=== PATIENT | male | born 2000 | race Caucasian/White ===

== ENCOUNTER 2021-08-07 18:38 | Emergency (ER) | payer OTHER, SELFPAY ==
[2021-08-07 18:48] VITALS: BP 169/87; PULSE 71; RESP 20; TEMP 37.2; O2SAT 100
--- NOTE | 2021-08-07 18:58 | ED.GENADULT ---
HPI - General Adult General Chief complaint: Unspecified Stated complaint: Possible stress level is high, loss of sleep Time Seen by Provider: 08/07/21 18:58 Source: patient and RN notes reviewed History of Present Illness HPI narrative: Patient is a 20-year-old male who presents the urgent care with complaints of increased stress and anxiety. Patient states that he has not been sleeping well since Saturday. States that he has had anxiety in the past and was recommended to try relaxation and yoga exercises. Patient states that he spoke to his provider about recent increased anxiety and he has an appointment with her coming up next month but she advised him to follow-up in the urgent care. Patient has used melatonin and NyQuil for sleep without much improvement. Patient denies any suicidal or homicidal thoughts. Patient is tearful. No other acute complaints. No acute distress noted. Patient aware of the plan of care. Some parts of this dictation were generated by voice recognition software and may contain typographical and/or grammatical inaccuracies. Related Data Allergies Allergy/AdvReac Type Severity Reaction Status Date / Time No Known Allergies Allergy Unknown Verified 02/28/17 01:14 Review of Systems Review of Systems: CONSTITUTIONAL: Denies fever, chills, or sweats. EYES: Denies visual changes, redness, or discharge. ENT: Denies rhinorrhea, congestion, sore throat, or otalgia. CARDIOVASCULAR: Denies chest pain, palpitations, or edema. RESPIRATORY: Denies cough or dyspnea. GASTROINTESTINAL: Denies abdominal pain, nausea, vomiting, or diarrhea. GENITOURINARY: Denies dysuria or hematuria. SKIN: Denies rash or itching. MUSCULOSKELETAL: Denies back pain, joint pain, or myalgia. NEUROLOGIC: Denies headache, numbness, or weakness. PSYCHIATRIC: Reports of increased rest and anxiety All other systems reviewed are negative, except as documented in HPI. PMFSH Comments At the time of my signature, I reviewed and agree with the nursing past medical, surgical, social, and family history. There is no relevant family history pertinent to the patient complaint. Exam Narrative: GENERAL: This is a well-nourished, well-developed patient. Tearful HEAD: normocephalic, atraumatic. EYES: PERRL. Sclera clear/white. Vision is grossly intact. EARS: External ears normal NOSE: External nose normal with no obvious nasal discharge, nares without redness, no rhinorrhea. THROAT: Mucous membranes moist NECK: Neck supple CARDIOVASCULAR: Regular rate and rhythm without murmurs, gallops, or rubs. RESPIRATORY: Clear to auscultation. Breath sounds equal bilaterally. No wheezes, rales, or rhonchi. SKIN: warm, intact with no suspicious lesions or rash, good texture and turgor. NEURO: awake, alert, and oriented to person, place and time. There were no obvious focal neurologic abnormalities. EXTREMITIES: No clubbing, cyanosis, or edema. Course Vital Signs Vital signs: Vital Signs Temperature 99.0 F 08/07/21 18:48 Pulse Rate 71 08/07/21 18:48 Respiratory Rate 20 08/07/21 18:48 Blood Pressure 169/87 H 08/07/21 18:48 Pulse Oximetry 100 08/07/21 18:48 Temperature 99.0 F 08/07/21 18:48 Pulse Rate 71 08/07/21 18:48 Respiratory Rate 20 08/07/21 18:48 Blood Pressure 169/87 H 08/07/21 18:48 Pulse Oximetry 100 08/07/21 18:48 Reviewed-patient is informed that they may have pre-hypertension or hypertension based on a blood pressure reading in the department. I recommend the patient call the primary care provider listed on their discharge instructions or a physician of their choice this week to arrange follow-up for further evaluation of possible pre-hypertension or hypertension. Medical Decision Making MDM Narrative Medical decision making narrative: Advised the patient to use the hydroxyzine as needed for anxiety. Follow-up with your PCP as scheduled next month for a possible anxiety/depression medication for daily use. If you d
== END 2021-08-07 19:15 | disposition home or self-care (01) ==
PROVIDERS: Emergency Provider Nurse Practitioner Family; PCP Internal Medicine
DX: F41.9 Anxiety disorder, unspecified (principal)
CPT/HCPCS: 99213; G0463

== ENCOUNTER 2025-06-10 19:13 | Emergency (ER) | payer SELFPAY ==
--- OUTSIDE RECORDS SUMMARY | 2025-06-10 19:16 | XMS_ITS | Clinical Summary ---
Author Organization [facility] Address 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 This disclosure is being madepursuant to the Care Everywhere program and may not contain all information available regarding this patient. Last updated 18.[facility] Allergies No known active allergies Medications * Be aware that medications may not be up to date on this document. Alwaysverify current medications with the patient. Methylphenidate ER (METADATE ER; RITALIN SR) 20 MG tablet 12/22/2015 Active mupirocin (BACTROBAN) 2 % ointment 0 12/13/2015 Active minocycline (MINOCIN) 100 MG capsule Take 1 Cap by mouth once daily 0 03/24/2017 Active DEBROX 6.5 % otic solution Instill 5 Drops into both ears once daily 0 03/22/2017 Active tretinoin (RETIN-A) 0.1 % cream Apply to affected area as needed 1 03/22/2017 Active ibuprofen (MOTRIN) 400 MG tablet Take 1 Tab by mouth as needed 0 03/03/2017 Active polyethylene glycol 3350 (MIRALAX) powder Take 17 g by mouth as needed 0 01/18/2017 Active hydrOXYzine hcl (ATARAX) 25 MG tablet Take 1 Tab by mouth as needed 0 01/15/2017 Active Active Problems Problem Noted Date Diagnosed Date Chronic headache 04/09/2017 ADHD (attention deficit hyperactivity disorder) 04/09/2017 Anxiety 04/09/2017 Family History Medical History Relation Name Comments Anesthesia Reaction Neg Hx Social History Tobacco Use Types Packs/Day Years Used Date Smoking Tobacco: Passive Smo ke Exposure - Never Smoker Alcohol Use Standard Drinks/Week Comments No 0 (1 standard drink = 0.6 oz pur e alcohol) Sex and Gender Information Value Date Recorded Sex Assigned at Not on file Legal Sex Male 3:36 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 Gender Identity Not on file Sexual Orientation Not on file Last Filed Vital Signs Vital Sign Reading Time Taken Comments Blood Pressure 116/70 04/18/2017 8:36 AM CDT Pulse 84 02/18/2017 8:28 AM CDT per p cp Temperature 36.9 C (98.4 F) 02/18/2017 8:28 AM CDT per pcp Respiratory Rate 16 02/18/2017 8:28 AM CDT p er pcp Oxygen Saturation 98% 01/12/2016 12:45 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 Inhaled Oxygen Concentration - - Weight 72.2 kg (159 lb 2.8 oz) 07/24/2017 1:36 P M CDT Height 166.1 cm (5' 5.39) 07/24/2017 1:36 PM CD T Body Mass Index 26.17 07/24/2017 1:36 PM CDT Plan of Treatment Health Maintenance Due Date Last Done Comments HIV SCREENING 2015 HPV VACCINE (1 - Male 3-dose series) 2015 HEPATITIS C SCREENING 09/14/2018 DTAP/TDAP/TD VACCINES (1 - Tdap) 2019 HEPATITIS B VACCINE (1 of 3 - 19+ 3-dose series) 2019 COVID-19 VACCINE (1 - 2023-2 5 season) 2024 DEPRESSION SCREENING 11/25/2024 INFLUENZA VACCINE (#1) 2025 ZOSTER VACCINE (1 of 2) 2050 HIB VACCINE Aged Out No longer eligi ble based on patient's age to complete this topic MENINGOCOCCAL (Group B) VACC INE SHARED DECISION-MAKING Aged Out No longer eligibl e based on patient's age to complete this topic MENINGOCOCCAL GROUPS A/C/Y/W VACCINE Aged Out No longer eligible b ased on patient's age to complete this topic PNEUMOCOCCAL VACCINE Aged Out No long er eligible based on patient's age to complete this topic Insurance [facility]
--- OUTSIDE RECORDS SUMMARY | 2025-06-10 19:16 | XMS_ITS | Clinical Summary ---
Author Organization [facility] Address [address] [place] [address] Phone Care Team Providers Care Juice Weigher Name Role Phone Regina Lowe MD Primary Care Provider [phone] Allergies No known active allergies Medications hydrOXYzine (VISTARIL) 25 MG Capsule Take 1 Capsule by mouth 3 times daily as needed for Anxiety. 30 Capsule 4 Active ondansetron (ZOFRAN-ODT) 4 MG TABLET DISPERSIBLE Take 1 Tablet by mouth every 6 hours as needed for Nausea - 1st line. 10 Tablet 4 Active senna (SENOKOT) 8.6 MG Tablet Take 1 Tablet by mouth 2 times daily as needed for Constipation - 2nd line. 30 Tablet 4 Active loperamide (IMODIUM) 2 MG Capsule Take 1 Capsule by mouth 4 times daily as needed for Diarrhea. 30 Capsule 4 Active prochlorperazin e (COMPAZINE) 5 MG Tablet Take 2 Tablets by mouth every 6 hours as needed for Nausea - 1st line. 10 Tablet 4 Active dicyclomine (BENTYL) 20 MG Tablet Take 1 Tablet by mouth every 6 hours. 30 Tablet 5 Active naproxen (NAPROSYN) 500 MG Tablet Take 1 Tablet by mouth 2 times daily as needed for Moderate or more severe pain. 20 Tablet 5 Active Active Problems Problem Noted Date Diagnosed Date Enteritis 10/04/2024 ADHD Anxiety Marijuana abuse Encounters Date Type Department Care Team Description 06/07/2025 3:53 PM CDT - 06/07/2025 5:49 PM CDT [facility] [address] [facility] [place] [address] Sylvester Villafana, PAC Contusion of left foot Discharge Disposition: Discharged to home or Selfcare 06/07/2025 Travel 04/30/2025 7:24 PM CDT - 04/30/2025 11:59 PM CDT Hospital Encounter [facility] [address] [place] [address] Lisa Rhoades, JORGE, HOME COMFORT ADVISOR Discharge Disposition: Discharged to home or Selfcare 04/30/2025 Travel 04/20/2025 Transcribe Orders [facility] Central Scheduling [address] [place] [address] Lisa Rhoades, JORGE, HOME COMFORT ADVISOR Solitary pulmonary nodule (Primary Dx) 04/02/2025 Transcribe Orders [facility] Central Scheduling [address] [place] [address] Lisa Rhoades, JORGE, HOME COMFORT ADVISOR Pulmonary nodule (Primary Dx) 03/23/2025 6:52 PM CDT - 03/23/2025 10:33 PM CDT Emergency [facility] Emergency [address] [place] [address] Vannessa Hadley, JORGE, HOME COMFORT ADVISOR COVID Discharge Disposition: Discharged to home or Selfcare 03/22/2025 11:05 PM CDT - 03/22/2025 11:34 PM CDT Emergency [facility] Emergency [address] [place] [address] Elfego Faremr MD COVID-19 Discharge Disposition: Discharged to home or Selfcare 03/22/2025 Travel from Last 3 Months Immunizations Immunization Administration Dates Next Due Influenza Vaccine greater than 3 yrs 08/03/2020 Family History Medical History Relation Name Comments No Known Problems Father Diabetes Maternal Grandfather Clotting Disorder Maternal Uncle Diabetes Mother Stroke Mother Relation Name Status Comments Father Alive Maternal Grandfather Maternal Uncle Mother Alive Social History Tobacco Use Types Packs/Day Years Used Date Smoking Tobacco: Never Smokeless Tobacco: Never Tobacco Cessation:Counseling Given: Not Answered Alcohol Use Standard Drinks/Week Comments Not Currently 0 (1 standard drink = 0.6 oz pur e alcohol) [facility] Utilities Answer Date Recorded In the past 12 months has th e miiCard, gas, oil, or water company threatened to shut off services in your home? No 10/04/2024 Hunger Vital Sign Answer Date Recorded Within the past 12 months, y ou worried that your food would run out before you got the money to buy more. Never true 10/04/20 24 Within the past 12 months, t he food you bought just didn't last and you didn't have money to get more. Never true 10/04/2024 PRAPARE - Transportation Answer Date Re corded In the past 12 months, has l ack of transportation kept you from medical appointments or from getting medications? No 09/25 In the past 12 months, has l ack of transportation kept you from meetings, work, or from getting things needed for daily living? No 10/04/2024 Housing Stability Vital Sign Answer Leonidas e Recorded In the last 12 months, was t here a time when you were not able to pay the mortgage or rent on time? No 10/04/2024 In the past 12 months, how m any times have you moved where you were living? 0 10/04/2024 At any time in the past 12 m [facility], were you homeless or living in a retirement (including now)? 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 Legal Sex Male 7:09 PM CDT Gender Identity Male 10/04/2024 12:16 AM AIRCRAFT FUELER Sexual Orientation Not on file Last Filed Vital Signs Vital Sign Reading Time Taken Comments Blood Pressure 136/92 06/07/2025 3:22 PM CDT Pulse 80 06/07/2025 3:22 PM CDT Temperature 36.4 C (97.6 F) 06/07/2025 3:22 PM CDT Respiratory Rate 18 06/07/2025 3:22 PM CDT Oxygen Saturation 100% 06/07/2025 3:22 PM CDT Inhaled Oxygen Concentration - - Weight 97.5 kg (215 lb) 06/07/2025 3:22 PM CDT Height 170.2 cm (5' 7) 06/07/2025 3:22 PM CDT Body Mass Index 33.67 06/07/2025 3:22 PM CDT Plan of Treatment Health Maintenance Due Date Last Done Comments Hepatitis C Virus (HCV) Screening 2000 SARS-COV-2 Immunization ( season) 2024 12/08/2021 Influenza Immunization (#1) 07/26/202502/2021, 08/03/2020, 08/14/2017, Additional history exists Respiratory Syncytial Virus (RSV) Immunization (Adult) (1 - 1-dose 75+ series) 2075 Hepatitis B Immunization Completed 001, 2000, 2000 Pneumococcal Immunization Combined Aged Out 04/09/2001, 01/28/2001, 2000 No longer eligible based on patient's age to complete this topic Human Papillomavirus (HPV) Immunization Completed 04/06/2013, 12/04/2012, 10/02/2012 Meningococcal Immunization (ACWY) Completed 09/20/2016, 06/30/2012 Meningococcal B Immunization Discontinued 08/14/2017, 07/11/2017 DTaP/Tdap/Td Immunization Discontinued 2024, 04/10/2011, 02/28/2006, Additional history exists TdaP Immunization Completed 04/02/2025, 04/10/2011 Rotavirus Immunization Aged Out No lo nger eligible based on patient's age to complete this topic Procedures Procedure Name Priority Date/Time Associated Diagnosis Comments CT LEFT FOOT WO CONTRAST Stat with Interpretation 06/07/2025 4:59 PM CDT XR FOOT 3 OR MORE VIEWS LEFT STAT 06/07/2025 4:[address] CHEST W/O CONTRAST Routine 04/30/2025 7:42 PM CDT Solitary pulmonary nodule URINALYSIS REFLEX IF INDICATED BY ABNORMAL RESULTS STAT 03/23/2025 8:19 PM CDT from Last 3 Months Results * CT LEFT FOOT WO CONTRAST (06/07/2025 4:59 PM CDT) Anatomical Region Laterality Modality LOWER EXTREMITY Left Computed Tomogra phy 06/07/2025 5:24 PM CDT Impressions 06/07/2025 5:27 PM CDT IMPRESSION: 1. No acute osseous abnormality. Narrative 06/07/2025 5:27 PM CDT EXAM DESCRIPTION: CT LEFT FOOT WO CONTRAST REASON FOR STUDY: Patient had a director prospect dropped on his foot x today. Xrays showed apparent widening between the medial cuneiform and 2nd metatarsal base TECHNIQUE: Multidetector CT scan of the left foot was performed. coronal and sagittal images were reconstructed. Dose modulation adjustment of the mA and/or kV has been performed per [facility] protocols according to patient size and indication. COMPARISON: Radiographs 06/07/2025 FINDINGS: There is no acute fracture or acute traumatic malalignment. Joint spaces are normal. No focal bone lesions or erosions. There is normal bone mineralization. The muscle bulk is normal. The tendons are largely intact on this CT examination. No discrete soft tissue mass. There is no ankle effusion. THIS IS AN ELECTRONICALLY VERIFIED FINAL REPORT 06/07/2025 5:24 PM - Electronically signed by Tanja King M.D. AT: AT Report ID: [id number] Reading Location: [id number] Procedure Note Tanja King MD - 06/07/2025 EXAM DESCRIPTION: CT LEFT FOOT WO CONTRAST REASON FOR STUDY: Patient had a director prospect dropped on his foot x today. Xrays showed apparent widening between the medial cuneiform and 2nd metatarsal base TECHNIQUE: Multidetector CT scan of the left foot was performed. coronal and sagittal images were reconstructed. Dose modulation adjustment of the mA and/or kV has been performed per [facility] protocols according to patient size and indication. COMPARISON: Radiographs 06/07/2025 FINDINGS: There is no acute fracture or acute traumatic malalignment. Joint spaces are normal. No focal bone lesions or erosions. There is normal bone mineralization. The muscle bulk is normal. The tendons are largely intact on this CT examination. No discrete soft tissue mass. There is no ankle effusion. THIS IS AN ELECTRONICALLY VERIFIED FINAL REPORT 06/07/2025 5:24 PM - Electronically signed by Tanja King M.D. AT: AT Report ID: [id number] Reading Location: [id number] IMPRESSION: 1. No acute osseous abnormality. Sylvester Tomlinsonn PAC IMG CT ORDERABLES Fi nal Result * XR FOOT 3 OR MORE VIEWS LEFT (06/07/2025 4:13 PM CDT) Anatomical Region Laterality Modality LOWER EXTREMITY, foot Left Digital Ra diography 06/07/2025 4:30 PM CDT Impressions 06/07/2025 4:32 PM CDT IMPRESSION: Apparent widening between the medial cuneiform and 2nd metatarsal base. This might be projectional, but if there is concern for Lisfranc injury, CT or MRI could be considered. Narrative 06/07/2025 4:32 PM CDT EXAM DESCRIPTION: XR FOOT 3 OR MORE VIEWS LEFT REASON FOR STUDY: c/o left foot pain after zero turn mower was dropped on his foot. TECHNIQUE: 3 radiographic view(s) of the left foot . COMPARISON: None FINDINGS: There appears to be slightly widened distance between the medial cuneiform and 2nd metatarsal base although this could be projectional. Otherwise no evidence of fracture is identified. There is no radiopaque foreign body. THIS IS AN ELECTRONICALLY VERIFIED FINAL REPORT 06/07/2025 4:30 PM - Electronically signed by Adrian Aguilar M.D. JR: Report ID: [id number] Reading Location: [id number] Procedure Note Adrian Aguilar MD - 06/07/2025 EXAM DESCRIPTION: XR FOOT 3 OR MORE VIEWS LEFT REASON FOR STUDY: c/o left foot pain after zero turn mower was dropped on his foot. TECHNIQUE: 3 radiographic view(s) of the left foot . COMPARISON: None FINDINGS: There appears to be slightly widened distance between the medial cuneiform and 2nd metatarsal base although this could be projectional. Otherwise no evidence of fracture is identified. There is no radiopaque foreign body. THIS IS AN ELECTRONICALLY VERIFIED FINAL REPORT 06/07/2025 4:30 PM - Electronically signed by Adrian Aguilar M.D. JR: Report ID: [id number] Reading Location: [id number] IMPRESSION: Apparent widening between the medial cuneiform and 2nd metatarsal base. This might be projectional, but if there is concern for Lisfranc injury, CT or MRI could be considered. Sylvester Lane Ledy PAC IMG DIAGNOSTIC ORDER HEATH Final Result * CT CHEST W/O CONTRAST (04/30/2025 7:42 PM CDT) Anatomical Region Laterality Modality Chest N/A Computed Tomogra phy 05/10/2025 6:07 AM CDT Impressions 05/10/2025 6:10 AM CDT IMPRESSION: 1. Multiple tiny stable nodules seen in the lung bases bilaterally unchanged dating back to February 05, 2021, the largest nodule measuring 5 mm. No imaging surveillance indicated for nodules of this size in a patient this age. 2. No acute cardiopulmonary abnormality. Narrative 05/10/2025 6:10 AM CDT EXAM DESCRIPTION: CT CHEST W/O CONTRAST REASON FOR STUDY: follow up to prior CT abd/pelv on 03/22/25 noting a RLL nodule TECHNIQUE: CT scan of the chest performed without intravenous contrast using helical scanning technique. Reconstructed coronal and sagittal MPR images reviewed. All images stored on PACS. Automated mA/kV exposure control was utilized as a dose optimization technique for this examination, performed in strict accordance with principles of ALARA. COMPARISON: Comparison is made to chest x-ray of October 04, 2024 and relevant images from CTs of the abdomen and pelvis of October 04, 2024 and February 05, 2021. REFERENCE: Per ACR white paper recommendations, unless otherwise specified no follow-up imaging is recommended for incidental renal and adrenal lesions per consensus recommendations based on imaging criteria. Further lab evaluation could be pursued based on clinical findings. FINDINGS: The sensitivity for detection of solid visceral lesions is diminished without the use of intravenous contrast. NECK BASE: Unremarkable on this non-contrast CT. HARDWARE/LINES/TUBES: None. LYMPH NODES: No axillary, mediastinal or hilar lymphadenopathy is seen by CT size criteria on this non-contrast CT. MEDIASTINUM/LEONEL: No masses seen. The aorta and great vessels appear normal. There is no significant coronary artery calcification. Heart size is normal. There is no significant pericardial effusion. PLEURA: No effusion. No pneumothorax. LUNGS: There are multiple tiny stable nodules seen in the lung bases bilaterally unchanged dating back to February 05, 2021 on series 3, images 61, 62, 69, 76, 78 and 94, the largest nodule measuring 5 mm. The central airways are normal. CHEST WALL/BREAST: Unremarkable. MUSCULOSKELETAL: No acute abnormality. UPPER ABDOMEN: No significant abnormality. OTHER: No other significant abnormality. THIS IS AN ELECTRONICALLY VERIFIED FINAL REPORT 05/10/2025 6:07 AM - Electronically signed by Laura Reed M.D. SN: Report ID: [id number] Reading Location: [place] [id number] Procedure Note Laura Reed MD - 05/10/2025 EXAM DESCRIPTION: CT CHEST W/O CONTRAST REASON FOR STUDY: follow up to prior CT abd/pelv on 03/22/25 noting a RLL nodule TECHNIQUE: CT scan of the chest performed without intravenous contrast using helical scanning technique. Reconstructed coronal and sagittal MPR images reviewed. All images stored on PACS. Automated mA/kV exposure control was utilized as a dose optimization technique for this examination, performed in strict accordance with principles of ALARA. COMPARISON: Comparison is made to chest x-ray of October 04, 2024 and relevant images from CTs of the abdomen and pelvis of October 04, 2024 and February 05, 2021. REFERENCE: Per ACR white paper recommendations, unless otherwise specified no follow-up imaging is recommended for incidental renal and adrenal lesions per consensus recommendations based on imaging criteria. Further lab evaluation could be pursued based on clinical findings. FINDINGS: The sensitivity for detection of solid visceral lesions is diminished without the use of intravenous contrast. NECK BASE: Unremarkable on this non-contrast CT. HARDWARE/LINES/TUBES: None. LYMPH NODES: No axillary, mediastinal or hilar lymphadenopathy is seen by CT size criteria on this non-contrast CT. MEDIASTINUM/LEONEL: No masses seen. The aorta and great vessels appear normal. There is no significant coronary artery calcification. Heart size is normal. There is no significant pericardial effusion. PLEURA: No effusion. No pneumothorax. LUNGS: There are multiple tiny stable nodules seen in the lung bases bilaterally unchanged dating back to February 05, 2021 on series 3, images 61, 62, 69, 76, 78 and 94, the largest nodule measuring 5 mm. The central airways are normal. CHEST WALL/BREAST: Unremarkable. MUSCULOSKELETAL: No acute abnormality. UPPER ABDOMEN: No significant abnormality. OTHER: No other significant abnormality. THIS IS AN ELECTRONICALLY VERIFIED FINAL REPORT 05/10/2025 6:07 AM - Electronically signed by Laura Reed M.D. SN: Report ID: [id number] Reading Location: [place] [id number] IMPRESSION: 1. Multiple tiny stable nodules seen in the lung bases bilaterally unchanged dating back to February 05, 2021, the largest nodule measuring 5 mm. No imaging surveillance indicated for nodules of this size in a patient this age. 2. No acute cardiopulmonary abnormality. Lisa Rhoades IS/IT PROJECT MANAGER, HOME COMFORT ADVISOR IMG CT ORDERABLES Final Result * (ABNORMAL) Urinalysis w/ Reflex (03/23/2025 8:19 PM CDT) SPECIFIC GRAVITY 1.025 1.003 - 1.030 03/23/2025 8:51 PM CDT [facility] URINE PH 5.0 5.0 - 9.0 03/23/2025 8:51 PM CDT [facility] WBC ESTERASE Negative Negative 03/23/2025 8:51 PM CDT [facility] NITRITE Negative Negative 03/23/2025 8:51 PM CDT [facility] PROTEIN, RANDOM URINE 30 mg/dL(A) Negative 03/23/2025 8:51 PM CDT [facility] URINE GLUCOSE, QUAL Negative Negative 03/23/2025 8:51 PM CDT [facility] URINE KETONES 150 mg/dL(A) Negative 8:51 PM CDT [facility] UROBILINOGEN 1 mg/dL(A) Normal mg/dL 03/23/2025 8:51 PM CDT [facility] URINE BLOOD 10 /uL(A) Negative jarvis/ul 03/23/2025 8:51 PM CDT [facility] URINALYSIS COLOR Dark Yellow 025 8:51 PM CDT [facility] URINALYSIS CLARITY Clear 03/23/2025 8:51 PM CDT [facility] WBC (Urine) 0-5 Negative, 0-5 /hpf 03/23/2025 8:51 PM CDT [facility] URINE RBC'S 3-5(A) Negative, 0-2 /hpf 03/23/2025 8:51 PM CDT [facility] EPITHELIAL CELLS Negative /lpf 03/23/20 8:51 PM CDT [facility] BACTERIA, URINE Negative Negative /hpf 03/23/2025 8:51 PM CDT [facility] URINE MUCOUS Packed 03/23/2025 8:51 PM CDT [facility] Urine URINE SPECIMEN / Unknown Non-Phlebotomy Collection / Unknown 03/23/2025 8:19 PM CDT 03/23/2025 8:24 PM CDT us Vannessa Hadley IS/IT PROJECT MANAGER, HOME COMFORT ADVISOR URINE ORDERABLES F inal Result [facility] [address] [place] [address] from Last 3 Months Advance Directives * Full Code (Latest Code Status on File) Date Activated Date Inactivated Comments 10/04/2024 3:04 AM CPR-Full Rosa tment: FULL ARREST: Attempt Resuscitation/CPR wit intubation and mechanical ventilation. PRE-ARREST: Use entire range of life support measures to stabilize the patient. Care Teams Juice Weigher Relationship Specialty Start Date End Date Regina Lowe MD [address] [place] [address] PCP - General Internal Medicine 06/09/20
--- OUTSIDE RECORDS SUMMARY | 2025-06-10 19:16 | XMS_ITS | Encounter Summary ---
Author Organization [facility] Address [address] [place] [address] Phone Care Team Providers Care Director Home Health Name Role Phone Regina Lowe MD Primary Care Provider [phone] Encounter Details Date Type Department Care Team (Late st Contact Info) Description 09/23/2020 Transcribe Orders [facility] Preop[facility]Pacu II [address] [place] [phone] Yfn Reyes, DPM [address] [place] [phone] Pre-op testing (Primary Dx) Social History Tobacco Use Types Packs/Day Years Used Date Smoking Tobacco: Never Smokeless Tobacco: Never Alcohol Use Standard Drinks/Week Comments Not Currently 0 (1 standard drink = 0.6 oz pur e alcohol) Sex and Gender Information Value Date Recorded Sex Assigned at Male 10/04/2024 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 No / Unsure 09/22/2020 2:42 PM CDT documented as of this encounter Plan of Treatment Not on file documented as of this encounter Results * SARS-COV-2 BY MOLECULAR (09/27/2020 11:44 AM TEAM CDL DRIVER) SARSCOV2 NOT DETECTED (Referenc e Range for this test is Not Detected) [facility] THERMOFISHER FAST DX 09/28/2020 9:21 PM TEAM CDL DRIVER [facility] Swab NASOPHARYNGEAL STRUCTURE / Unknown Non-Phlebotomy Collection / Unknown 09/27/2020 11:44 AM TEAM CDL DRIVER 09/27/2020 11:44 AM TEAM CDL DRIVER Narrative [facility] - 09/28/2020 9:21 PM TEAM CDL DRIVER Authorized Fact Sheets about this test for providers and patients are available at: https://www.fda.gov/medical-devices/cstdnyrhh-nppyikabgu-evexqvl-devices/emergen -us e-authorizations us Yfn Reyes DPM MICROBIOLOGY - GENERAL ORDERABLE S Final Result [facility] [address] [place] [address], documented in this encounter Visit Diagnoses Diagnosis Pre-op testing- Primary Preoperative examination, unspecified documented in this encounter Additional Health Concerns Infection Onset Date Last Indicated Resolved Time C. difficile Rule-Out 10/04/2024 10/04/20242023 2:07 PM TEAM CDL DRIVER C. difficile Rule-Out 10/05/2024 10/05/20242023 2:09 PM TEAM CDL DRIVER documented as of this encounter Care Teams Director Home Health Relationship Specialty Start Date End Date Regina Lowe MD [address] [place] [address] PCP - General Internal Medicine 06/09/20 documented as of this encounter
[2025-06-10 19:20] VITALS: BP 159/88; PULSE 69; RESP 20; TEMP 36.9; O2SAT 99
--- NOTE | 2025-06-10 19:41 | ECG_ITS ---
Test Date: 2025-06-10 19:45:04 Measurements Intervals [place] Rate: 67 P: 40 KS: 146 QRS: -5 QRSD: 101 T: 49 QT: 347 QTc: 369 Interpretive Statements SINUS RHYTHM INCOMPLETE RIGHT BUNDLE BRANCH BLOCK BORDERLINE ECG No previous ECG available for comparison Electronically Signed On 06-11-2025 07:41:38 CDT by Domingo Mosley M.D.
--- NOTE | 2025-06-10 19:41 | ED.DIZZY ---
HPI - Dizziness General Chief Complaint: Dizziness Stated Complaint: dizzy, lightheaded Time Seen by Provider: 06/10/25 19:31 Source: patient and RN notes reviewed Mode of arrival: ambulatory Limitations: no limitations History of Present Illness HPI Narrative: Patient presents today complaining of dizziness, lightheadedness, shakiness, nausea. 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 States his symptoms became so severe he almost collapsed. States he couldn't leave his job to get evaluated sooner. Reports symptoms have not improved this evening with rest. He had 2 Zarina teas and 1 gatorade to drink today. Denies vomiting, abdominal pain, chest pain, shortness of breath, muscle cramping. Blood glucose Related Data Home Medications ?Medication ?Instructions ?Recorded ?Confirmed ?Last Taken ?Type escitalopram oxalate 5 mg tablet mg 06/10/25 Unknown History Allergies Allergy/AdvReac Type Severity Reaction Status Date / Time No Known Allergies Allergy Unknown Verified 06/10/25 19:30 [facility] Comments At time of signature, I have reviewed and agree with nursing past medical, surgical, social and family history unless otherwise noted. Please see nursing chart for further information. There is no relevant family history pertinent to the presenting complaint Exam Narrative: GENERAL: Well-appearing, well-nourished, and in no acute distress. HEAD: Normocephalic, atraumatic. EYES: EOMI. No redness or drainage. Conjunctivae normal. ENT: Mucous membranes pink and moist. NECK: Normal AROM. Supple. No lymphadenopathy. CHEST: No respiratory distress. Clear to auscultation. HEART: Regular rate and rhythm. No murmur appreciated. ABDOMEN: Soft, nontender, nondistended, normal active bowel sounds. EXTREMITIES: Normal range of motion. No edema. SKIN: Warm, dry, no rash. Capillary refill normal. Normal skin turgor. NEURO: No focal deficits. Alert and oriented x3. Gait steady. Hand quartz mounter equal and strong. 5/5 strength in bilateral BLE PSYCH: Normal affect. No signs of depression or anxiety. Course Course Level of Care: Express Care Visit Vital Signs Vital signs: Vital Signs Temperature 98.4 F 06/10/25 19:20 Pulse Rate 69 06/10/25 19:20 Respiratory Rate 20 06/10/25 19:20 Blood Pressure 159/88 H 06/10/25 19:20 Pulse Oximetry 99 06/10/25 19:20 Oxygen Delivery Room Air 06/10/25 19:20 Temperature 98.4 F 06/10/25 19:20 Pulse Rate 69 06/10/25 19:20 Respiratory Rate 20 06/10/25 19:20 Blood Pressure 159/88 H 06/10/25 19:20 Pulse Oximetry 99 06/10/25 19:20 Oxygen Delivery Room Air 06/10/25 19:20 Reviewed Orthostatic blood pressures: Supine 148/90-heart rate 74, sitting 154/83-heart rate 63, standing 162/80 -heart rate 84 Transfer Transfered to: [facility]) Transportation: Other (Private vehicle) Transfer rationale: Dizziness, lightheadedness, nausea Accepting physician: Baljinder MDM - Dizziness MDM Narrative Medical decision making narrative: 24-year-old male patient presents today complaining of approximately 8 hours of dizziness, lightheadedness, nausea after 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 States symptoms have not improved with rest. Blood sugar 108 upon arrival. EKG shows sinus rhythm. Vital signs stable. Patient does not have orthostasis after orthostatic blood pressures. Recommend patient be transferred to the emergency department for further evaluation of his symptoms. Patient agrees with plan. Report given to RN at [facility] ED in [place]. Differential Diagnosis Differential diagnosis: Likely orthostatic hypotension and other (Electrolyte imbalance, thyroid issue, dehydration, heat exhaustion) Lab Data Attestation: I reviewed the patient's lab results. Labs: Lab Results 06/10/25 Range/Units 19:35 POC Capillary Glucose 108 H (65-105) mg/dl ECG Data EKG #1: Attestation: I personally reviewed and interpreted this ECG as follows: ECG completion date: 06/10/25 ECG completion time: 19:45 Prior ECG tracings: not available for review Interpretation: Sinus rhythm. Possible right atrial enlargement. Right ventricular conduction delay. Heart rate 67. HI interval 146 Critical Care Time Critical Care Time Critical Care Time: No Discharge Plan Discharge Clinical Impression: Lightheadedness, Dizziness, Nausea Patient Disposition: Acute Care Hospital Condition: Stable Patient Language: Hungarian Prescriptions: No Action escitalopram oxalate 5 mg tablet Follow-up/Referrals: Rhoades,Lisa M., RN [Primary Care Provider] - Time of Disposition: 20:01
[2025-06-10 19:50] VITALS: BP 148/90; PULSE 74
[2025-06-10 19:53] VITALS: BP 154/83; PULSE 63
[2025-06-10 19:56] VITALS: BP 162/84; PULSE 84
== END 2025-06-10 20:08 | disposition short-term general hospital (02) ==
PROVIDERS: Emergency Provider Nurse Practitioner
DX: R42 Dizziness and giddiness (principal); R11.0 Nausea
CPT/HCPCS: 82948; 93005; 99213; G0463